=== PATIENT | female | born 1995 | race Caucasian/White ===

== ENCOUNTER 2016-10-16 14:42 | Observation (INO) | payer MEDICAID ==
[2016-10-16] MEDS ORDERED: PRENA1 CHEW TA1.4 M1 PO (16:04)
[2016-10-16] MEDS ORDERED: FEROSUL325 M1 (16:04)
[2016-10-16] MEDS ORDERED: FEROSUL325 M1 PO (16:04)
[2017-02-22] MEDS ORDERED: NORCO 5-325 TA1 EACH PO (12:11)
== END 2016-10-16 16:00 ==
LOC: LDR 14:42
PROVIDERS: ADMIT Obstetrics & Gynecology
DX: O99.89 Other specified diseases and conditions complicating pregnancy, childbirth and the puerperium (principal); M79.89 Other specified soft tissue disorders; Z3A.22 22 weeks gestation of pregnancy; Z79.899 Other long term (current) drug therapy; Z87.891 Personal history of nicotine dependence

== ENCOUNTER 2016-12-08 21:58 | Emergency (ER) | payer MEDICAID ==
[~2016-12-08 21:58] MED LIST: FEROSUL325 M1; FEROSUL325 M1 PO; PRENA1 CHEW TA1.4 M1 PO
[2016-12-08] MEDS ORDERED: PROAIR HFA8.5 GM INH (23:33)
[2017-02-22] MEDS ORDERED: NORCO 5-325 TA1 EACH PO (12:11)
== END 2016-12-08 23:41 ==
LOC: EDMED 21:58
DX: O99.513 Diseases of the respiratory system complicating pregnancy, third trimester (principal); J45.901 Unspecified asthma with (acute) exacerbation; Z3A.31 31 weeks gestation of pregnancy; Z79.51 Long term (current) use of inhaled steroids

== ENCOUNTER 2017-01-12 22:54 | Observation (INO) | payer MEDICAID ==
[~2017-01-12 22:54] MED LIST changes: +PROAIR HFA8.5 GM INH
[2017-02-22] MEDS ORDERED: NORCO 5-325 TA1 EACH PO (12:11)
== END 2017-01-13 01:55 ==
LOC: LDR 22:54
PROVIDERS: ADMIT Obstetrics & Gynecology
DX: O47.03 False labor before 37 completed weeks of gestation, third trimester (principal); Z3A.34 34 weeks gestation of pregnancy; Z87.891 Personal history of nicotine dependence; Z90.89 Acquired absence of other organs